=== PATIENT | female | born 1995 | race Caucasian/White ===

== ENCOUNTER 2017-07-07 11:03 | Emergency (ER) | END 2017-07-07 12:10 | disposition left against medical advice (07) | LOC: UCCORT 11:03 | DX: S59.901A Unspecified injury of right elbow, initial encounter (principal); X58.XXXA Exposure to other specified factors, initial encounter; Y93.9 Activity, unspecified; Y92.9 Unspecified place or not applicable; Z53.21 Procedure and treatment not carried out due to patient leaving prior to being seen by health care provider ==

== ENCOUNTER 2017-09-04 15:49 | Emergency (ER) | payer BC ==
[2017-09-04 17:04] VITALS: BP 116/71
--- NOTE | 2017-09-04 17:56 | UC ---
Back Pain HPI - HPI Summary HPI Summary: fell going down stairs yesterday -has muscular skeletal aches but worsening "tailbone " pain and pain in chest when she takes a deep breath - History of Current Complaint Chief Complaint: UCBackPain Stated Complaint: FALL ON ICE,BACK,NECK,CHEST Time Seen by Provider: 09/04/17 17:48 Hx Obtained From: Patient Hx Last Menstrual Period: 04/30/16 ?: No Onset/Duration: Sudden Onset, Lasting Days - 1, Worse Since - getting worse all day Timing: Constant Severity Initially: Moderate Severity Currently: Moderate Pain Intensity: 5 Back Pain: Is Diffuse Character: Aching, Stiffness Aggravating Factor(s): Movement, Cough Alleviating Factor(s): Heat, OTC Meds Associated Signs And Symptoms: Positive: Negative - Allergies/Home Medications Allergies/Adverse Reactions: Allergies Allergy/AdvReac Type Severity Reaction Status Date / Time No Known Allergies Allergy Verified 09/04/17 17:03 Home Medications: Home Medications Minocycline (NF) 50 mg PO DAILY 09/04/17 [History Confirmed 09/04/17] PMH/Surg Hx/FS Hx/Imm Hx Previously Healthy: Yes Other History Of: Negative For: HIV, Hepatitis B, Hepatitis C, Anticoagulant Therapy - Surgical History Surgical History: None - Family History Known Family History: Negative: Hypertension, Diabetes - Social History Occupation: Student Lives: With Family Alcohol Use: Occasionally Substance Use Type: None Smoking Status (MU): Never Smoked Tobacco Review of Systems Constitutional: Negative Skin: Negative Eyes: Negative ENT: Negative Respiratory: Other - chest hurts with deep breaths Cardiovascular: Negative Gastrointestinal: Negative Genitourinary: Negative Motor: Negative Neurovascular: Negative Musculoskeletal: Arthralgia - "tailbone hurts", Myalgia - muscles on left and right side of back Neurological: Negative Psychological: Negative Is Patient Immunocompromised?: No All Other Systems Reviewed And Are Negative: Yes Physical Exam Triage Information Reviewed: Yes Appearance: Well-Appearing, No Pain Distress, Well-Nourished Vital Signs: Initial Vital Signs Temp 98.7 F 09/04/17 17:00 Pulse 54 09/04/17 17:00 Resp 14 09/04/17 17:00 BP 116/71 09/04/17 17:00 Pulse Ox 100 09/04/17 17:00 Vital Signs Reviewed: Yes Eye Exam: Normal Eyes: Positive: Conjunctiva Clear ENT Exam: Normal ENT: Positive: Normal ENT inspection, Hearing grossly normal. Negative: Nasal congestion, Trismus, Muffled voice, Hoarse voice, Dental tenderness, Sinus tenderness Dental Exam: Normal Neck exam: Normal Neck: Positive: Supple, Nontender, No Lymphadenopathy Respiratory Exam: Normal Respiratory: Positive: Chest non-tender, Lungs clear, Normal breath sounds, No respiratory distress, No accessory muscle use Cardiovascular Exam: Normal Cardiovascular: Positive: RRR, No Murmur, Pulses Normal, Brisk Capillary Refill Musculoskeletal Exam: Normal Musculoskeletal: Positive: Strength Intact, ROM Intact, No Edema, Other: - muscle pain in mid and lower back Neurological Exam: Normal Neurological: Positive: Alert, Muscle Tone Normal Psychological Exam: Normal Skin Exam: Normal Diagnostics - Radiology No standard instances Xray Interpretation: No Acute Changes Radiology Interpretation Completed By: ED Physician, Radiologist Back Pain Course/Dx - Course Course Of Treatment: warm pack, ibuprofen, physical therapy follow with [facility] [place] [facility] - Differential Dx/Diagnosis Provider Diagnoses: Tailbone contusion, muscle strain Discharge - Discharge Plan Condition: Stable Disposition: HOME Patient Education Materials: Ibuprofen (By mouth), Muscle Strain (ED), Musculoskeletal Pain (ED), Warm Compress or Soak (ED) Referrals: [facility] [Outside] - If Needed
--- NOTE | 2017-09-04 18:57 | RAD ---
Indication: Sacral pain after a fall Comparison: None. Technique: AP and lateral views sacrum and coccyx. Report: The visualized bones of the sacrum and coccyx are well-corticated and properly aligned. The joint spaces are adequately maintained. There is no radiographically apparent acute fracture or dislocation. IMPRESSION: Normal radiograph of the sacrum and coccyx. If the patient's symptoms persist, follow-up imaging is recommended.
--- NOTE | 2017-09-04 18:57 | RAD ---
INDICATION: Inspiration pain after a fall COMPARISON: None TECHNIQUE: PA and lateral views of the chest were obtained. FINDINGS: The heart and mediastinum are normal in size and contour. The lungs are grossly clear. There is no evidence of large pleural effusion. Visualized bones are normal for the patient's age. There is no radiographic evidence of free air beneath the diaphragm IMPRESSION: No radiographic evidence of acute cardiopulmonary disease.
== END 2017-09-04 19:17 | disposition home or self-care (01) ==
LOC: UCCORT 15:49
DX: S30.0XXA Contusion of lower back and pelvis, initial encounter (principal); T14.8XXA Other injury of unspecified body region, initial encounter; W10.9XXA Fall (on) (from) unspecified stairs and steps, initial encounter; Y93.9 Activity, unspecified; Y92.9 Unspecified place or not applicable; Z72.89 Other problems related to lifestyle
CPT/HCPCS: 71046; 72220; 99211; G0463